=== PATIENT | female | born 1995 | race African-American/Black ===

== ENCOUNTER 2021-06-05 18:01 | Emergency (ER) | payer SELFPAY ==
[~2021-06-05] VITALS: Ht 167.6 cm; Wt 80.0 kg
[2021-06-05 20:33] VITALS: BP 126/80
--- NOTE | 2021-06-05 22:11 | PHYS DOC ---
Past Medical History Past Surgical History: No Surgical History General Adult EDM: Chief Complaint: FLU SYMPTOM HPI: HPI: Patient is a 26-year-old female presenting for URI symptoms. Onset was 3 days ago. Patient reports subjective fever, chills, headache, nasal congestion, rhinorrhea and postnasal drip, sore throat, cervical lymphadenopathy, dry nonproductive cough, nausea and occasional diarrhea. She has no known sick contacts. She is not vaccinated against COVID-19. No known medical issues, no medications on a daily basis Review of Systems: Review of Systems: Fourteen body systems of review of systems have been reviewed. See HPI for pertinent positives and negative responses, other florian all other systems are negative, non-pertinent or non-contributory Heart Score: C/O Chest Pain: No Risk Factors: Risk Factors: DM, Current or recent (<one month) smoker, HTN, HLP, family history of CAD, obesity. Risk Scores: Score 0 - 3: 2.5% MACE over next 6 weeks - Discharge Home Score 4 - 6: 20.3% MACE over next 6 weeks - Admit for Clinical Observation Score 7 - 10: 72.7% MACE over next 6 weeks - Early Invasive Strategies Allergies: Allergies: Allergies Coded Allergies Type Severity Reaction Last Updated Verified No Known Drug Allergies 06/05/21 No Physical Exam: PE: General: Appears well, non toxic, and comfortable Skin: Warm, dry. Normal for ethnicity. HEENT: Atraumatic. PERRLA. Rhinorrhea and congestion. Nasal turbinates boggy b/l. Moist mucous membranes. Uvula midline. Maintaining secretions. No phonation changes. Cervical lymphadenopathy. Enlarged tonsils without any exudate. Neck: Trachea midline. Normal ROM. No stridor. Respiratory: Normal WOB. CTAB w/o w/r/r. No tachypnea. Cardiovascular: Regular rate and rhythm. Normal peripheral perfusion. Abdomen: Soft. Non tender. No distension. Back: Normal ROM. Musculoskeletal: No swelling or deformity. Neuro: Alert and oriented x 4. MAEE. Lymph: No cervical LAD. Psych: Normal affect and mood. Current Patient Data: Vital Signs: Vital Signs Date Time Temp Pulse Resp B/P (MAP) Pulse Ox O2 Delivery O2 Flow Rate FiO2 06/05/21 20:33 99.0 81 18 126/80 (95) 99 99.0 EKG: EKG: [] Radiology/Procedures: Radiology/Procedures: [] Course & Med Decision Making: Course & Med Decision Making ABCs unremarkable HPI, physical exam and comprehensive ER work-up nonconcerning for any emergent or surgical issues. Discussed symptoms are likely viral in nature, cannot exclude COVID-19 and so PCR test obtained with results pending Patient nontoxic, discussed no indication for further diagnostic work-up or aggressive intervention in ER setting. Strict return precautions discussed with good understanding by patient. Patient understands need to self quarantine etc. All questions and concerns addressed prior to departure [place] Disclaimer: Taty Disclaimer: This electronic medical record was generated, in whole or in part, using a voice recognition dictation system. Departure Departure Impression: Primary Impression: Viral syndrome Additional Impression: Person under investigation for COVID-19 Disposition: HOME / SELF CARE / HOMELESS Condition: STABLE Referrals: NO PCP (PCP) Additional Instructions: You were seen for headache, subjective fever and chills, URI symptoms, body aches, and possible infection with COVID-19. Your physical exam was reassuring. You were found to be negative for flu and strep throat. We tested you for COVID-19 but this test does not come back for 1 to 2 days. In the meantime you need to quarantine yourself at home away from all other individuals, especially those who are elderly or have any other chronic health issues or an immunocompromised status. You should return to the ED if you develop worsening cough, shortness of breath, chest pain, or any other new or concerning symptoms. Alternate Tylenol and ibuprofen as needed for body aches and pain. If your test does come back positive you need to quarantine yourself for 10 days until symptom-free. You should make sure to drink plenty of fluids and get plenty of rest. JEMMA LOWERY DO Jun 05, 2021 22:11
[2021-06-05 22:47] LABS: INFLUENZA A PATIENT NEGATIVE (NEGATIVE); INFLUENZA B PATIENT NEGATIVE (NEGATIVE)
--- NOTE | 2021-06-06 16:02 | NUR ---
IP: Attempted to notify patient of negative COVID19 test result. Voicemail message to please return call at number provided.
--- NOTE | 2021-06-07 09:32 | NUR ---
IP: Patient notified of negative COVID19 test result. Verbalized understanding.
== END 2021-06-05 23:00 | disposition home or self-care (01) ==
LOC: ER 18:01
DX: B34.9 Viral infection, unspecified (principal); Z20.822 Contact with and (suspected) exposure to COVID-19
CPT/HCPCS: 87070; 87804; 87880; 99283; U0003; U0005